=== PATIENT | female | born 1960 | race Caucasian/White ===

== ENCOUNTER → 2016-07-07 | Outpatient (CLI) | payer OTHER ==
[~2016-07-07] MED LIST: AUGMENTIN875 M1 PO; FERRO-TIME325 MG PO; FERROUS GLUCON325 M1 PO; FLUOCINOLONE TOP; HYDROQUINONE TOP; PERCOCET PO; PHENERGAN12.5 MG PO; PRILOSEC40 MG PO; PROTONIX PO; TRETINOIN TOP
[2016-07-07 14:19] LABS: BASOPHIL# 0.1 X10e3 (0-0.3); BASOPHIL% 0.8 % (0-2.5); EOSINOPHIL# 0.4 X10e3 (0-0.7); EOSINOPHIL% 5.3 % (0.0-7.0); HEMATOCRIT 41.3 % (35.0-45.0); HEMOGLOBIN 13.6 gm/dL (12.0-16.0); LYMPHOCYTE# 1.4 X10e3 (1.0-3.5); LYMPHOCYTE% 20.6 % (17.0-45.0); MEAN CELL VOLUME 94.3 FL (83-96); MEAN CORPUSCULAR HEMOGLOBIN 31.1 PG (28-34); MEAN PLATELET VOLUME 8.1 FL (6.5-11.5); MONOCYTE# 0.5 X10e3 (0-1.0); MONOCYTE% 6.9 % (3.0-12.0); NEUTROPHIL# 4.4 X10e3 (1.5-7.1); NEUTROPHIL% 66.4 % (40-75); PLATELET COUNT 192 X10e3 (140-420); RED BLOOD COUNT 4.38 X10e (3.90-5.30); RED CELL DISTRIBUTION WIDTH 18.6 % (11.0-15.5); WHITE BLOOD COUNT 6.7 X10e3 (4.0-10.5)
[2016-07-07 14:26] LABS: DIFF IND NO
[2016-07-07 14:56] LABS: ALBUMIN SERUM 4.4 g/dL (3.5-5.0); ALKALINE PHOSPHATASE 67 U/L (32-92); ALT (SGPT) 15 U/L (10-40); AST (SGOT) 21 U/L (10-42); BILIRUBIN,TOTAL 0.6 mg/dL (0.2-2.0); BLOOD UREA NITROGEN 14 mg/dL (9-23); CALCIUM SERUM 9.4 mg/dL (8.4-10.2); CARBON DIOXIDE 31 mmol/L (22-31); CHLORIDE 103 mmol/L (100-111); CREATININE SERUM 0.7 mg/dL (0.6-1.4); GLOM FILT RATE Estimated ABOVE60 mL/min (>60); GLUCOSE FASTING 78 mg/dL (70-110); IRON SERUM 138 ug/dL (28-170); POTASSIUM 4.3 mmol/L (3.5-5.1); SODIUM 139 mmol/L (135-145); TOTAL IRON BINDING CAPACITY 336 ug/dL (269-535); TRANSFERRIN 240 mg/dL (192-382); TRANSFERRIN SATURATION 41 % (20-50)
== END | disposition home or self-care (01) ==
LOC: CLAB 13:40
PROVIDERS: Nurse Practitioner
DX: D50.0 Iron deficiency anemia secondary to blood loss (chronic) (principal)
CPT/HCPCS: 36415; 80053; 83540; 83550; 85025